=== PATIENT | female | born 1945 | race African-American/Black ===

== ENCOUNTER 2017-12-18 11:29 | Emergency (ER) | payer MEDICARE, MEDICAID ==
[~2017-12-18] VITALS: Ht 154.9 cm; Wt 86.0 kg
[2017-12-18 13:04] LABS: BASOPHILS % 0.5 % (0.0-2.0); EOSINOPHILS % 6.4 % (0.0-5.0); HEMOGLOBIN. 11.9 g/dL (12.0-16.0); MEAN CORPUSCULAR HEMOGLOBIN 28.2 pg (28.0-32.0); MONOCYTES % 7.5 % (2.0-8.0); NEUTROPHILS % 43.6 % (40.0-76.0); PLATELET 303 x1000/uL (130-400); RED BLOOD CELL COUNT 4.22 mill/uL (4.2-5.4); RED CELL DISTRIBUTION WIDTH 15.6 % (11.6-14.6)
[2017-12-18 13:15] LABS: CHLORIDE 104 mEq/L (98-107)
[2017-12-18 13:15] LABS: PROTHROMBIN TIME 10.7 sec (9.4-11.6)
[2017-12-18 14:46] LABS: CLARITY URINE CLEAR (CLEAR); COLOR URINE YELLOW (YELLOW); KETONES URINE NEGATIVE (NEGATIVE); LEUKOCYTE ESTERASE URINE NEGATIVE (NEGATIVE); NITRITE URINE NEGATIVE (NEGATIVE); OCCULT BLOOD URINE NEGATIVE (NEGATIVE); PROTEIN URINE NEGATIVE (NEGATIVE); SPECIFIC GRAVITY URINE 1.008 (1.005-1.030); UROBILINOGEN URINE 0.2 E.U./dL (0.2-1.0)
[2017-12-18] MEDS ORDERED: ALBUTEROL (0.5%) 2.5MG/0.5ML NEB HHN ONE (15:00)
[2017-12-18] MEDS ORDERED: ALBUTEROL (0.083%) 2.5MG/3ML NEB ONE (16:23)
[2017-12-18 17:07] VITALS: BP 137/68
== END 2017-12-18 17:08 | disposition home or self-care (01) ==
LOC: ER 13:41
DX: R05 Cough (principal); R06.02 Shortness of breath; R07.2 Precordial pain; I10 Essential (primary) hypertension; E78.00 Pure hypercholesterolemia, unspecified; E11.9 Type 2 diabetes mellitus without complications; Z90.710 Acquired absence of both cervix and uterus; Z88.8 Allergy status to other drugs, medicaments and biological substances; Z96.659 Presence of unspecified artificial knee joint
CPT/HCPCS: 36415; 71045; 80053; 81003; 82962; 83605; 83880; 84484; 85025; 85610; 87040; 87086; 93005; 94640; 99285; J7611

== ENCOUNTER 2019-09-30 17:53 | Emergency (ER) | payer MEDICARE, MEDICAID ==
[~2019-09-30] VITALS: Ht 154.9 cm; Wt 90.0 kg
[~2019-09-30 17:53] MED LIST: AMLO2.5T45 PO; ASPI-1393 PO; CRES10 PO; DULA0.75 SQ; GLIM4TAB2 PO; HYDR12.54 PO; INSU100I28 SQ; IRBE75TA10 PO; LORA10TA7 PO; OMEP20TA2 PO; VIT1TABL62 PO
[2019-09-30] MEDS: CYCLOBENZAPRINE 10MG TABLET PO ONE (21:26)
[2019-09-30] MEDS: KETOROLAC 15MG/ML VIAL IM ONE (21:26)
[2019-10-01] VITALS: BP 164/68
== END 2019-10-01 00:41 | disposition home or self-care (01) ==
LOC: ER 20:07
DX: M54.2 Cervicalgia (principal); E11.9 Type 2 diabetes mellitus without complications; E78.00 Pure hypercholesterolemia, unspecified; I10 Essential (primary) hypertension; Z90.710 Acquired absence of both cervix and uterus; Z96.659 Presence of unspecified artificial knee joint; Z98.890 Other specified postprocedural states; Z79.4 Long term (current) use of insulin; Z79.82 Long term (current) use of aspirin; Z79.899 Other long term (current) drug therapy; Z88.5 Allergy status to narcotic agent
CPT/HCPCS: 72125; 96372; 99284; J1885